=== PATIENT | male | born 1950 | race Hispanic/Latino ===

== ENCOUNTER 2019-08-06 10:05 | Day surgery (SDC) | payer MEDICARE, OTHER ==
--- NOTE | 2019-08-06 10:27 | Anesthesia Consultation ---
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
[2019-08-06] MEDS ORDERED: ONDANSETRON 4 MG/2 ML INJ IV PRN (10:28)
--- NOTE | 2019-08-06 10:28 | Anesthesia Day of Surgery ---
Anesthesia Day of Surgery - Day of Surgery Patient Examined: Yes Patient H&P Reviewed: Yes Patient is NPO: Yes
[2019-08-06] MEDS ORDERED: MIDAZOLAM 2 MG/2 ML INJ IV NR (11:00)
[2019-08-06] MEDS ORDERED: LACTATED RINGERS 1,000 ML IV SCH (11:00)
[2019-08-06 11:45] LABS: Basophils # (Auto) 0.1 K/mm3 (0.0-0.1); Basophils % (Auto) 1.2 % (0.0-1.8); Eosinophils # (Auto) 0.2 K/mm3 (0.0-0.4); Eosinophils % (Auto) 3.3 % (0.0-4.3); Hematocrit 40.6 % (35.5-45.6); Hemoglobin 13.9 gm/dl (11.8-15.2); Lymphocytes # (Auto) 1.2 K/mm3 (1.2-5.4); Lymphocytes % (Auto) 18.1 % (13.4-35.0); Mean Corpuscular HGB Conc 34 % (32-34); Mean Corpuscular Volume 87 fl (84-94); Monocytes # (Auto) 0.7 K/mm3 (0.0-0.8); Monocytes % (Auto) 9.9 % (0.0-7.3); Platelet Count 242 K/mm3 (140-440); Red Blood Count 4.68 M/mm3 (3.65-5.03); Red Cell Distribution Width 13.4 % (13.2-15.2)
[2019-08-06 12:06] LABS: BUN/Creatinine Ratio 15; Blood Urea Nitrogen 15 mg/dL (9-20); Calcium 8.5 mg/dL (8.4-10.2); Hemolysis Index 22
[2019-08-06] MEDS ORDERED: LIDOCAINE MPF (2%) 20 MG/1 ML VIAL 5 ML ONE (14:03)
[2019-08-06] MEDS ORDERED: fentaNYL 100 MCG/2 ML INJ ONE (14:03)
[2019-08-06] MEDS ORDERED: PROPOFOL 200 MG/20 ML VIAL IV ONE (14:03)
[2019-08-06] MEDS ORDERED: MIDAZOLAM 2 MG/2 ML INJ ONE (14:16)
[2019-08-06] MEDS ORDERED: ePHEDrine SULFATE 50 MG/1 ML INJ ONE (14:53)
[2019-08-06] MEDS ORDERED: HYDROmorphone 1 MG/1 ML INJ ONE (15:07)
[2019-08-06] MEDS ORDERED: IOHEXOL 300 MG/ML 50ML IV ONE (15:12)
[2019-08-06] MEDS ORDERED: WATER FOR IRRIG STERILE 1,000 ML BOTTLE IR ONE (15:12)
[2019-08-06] MEDS ORDERED: WATER FOR IRRIG STERILE 2000 ML IR ONE (15:13)
[2019-08-06] MEDS ORDERED: SODIUM CHLORIDE 0.9% 100 ML ONE (15:16)
[2019-08-06] MEDS ORDERED: MITOMYCIN UD NR (15:30)
[2019-08-06] MEDS ORDERED: WATER FOR INJ UD NR (15:30)
[2019-08-06] MEDS ORDERED: MITOMYCIN IV ONE (15:39)
--- NOTE | 2019-08-06 15:51 | Short Stay Summary ---
Short Stay Documentation Date of service: 08/06/19 - History H&P: obtained from office - Allergies and Medications Current Medications: Allergies No Known Allergies Allergy (Verified 07/29/19 17:30) Home Medications Medication Instructions Recorded Confirmed Last Taken Type Aspirin [Adult Aspirin] 81 mg PO DAILY 07/29/19 07/29/19 07/30/19 08:00 History AtorvaSTATin [Lipitor] 20 mg PO QHS 07/29/19 07/29/19 08/05/19 20:00 History Cilostazol [Pletal] 50 mg PO DAILY 07/29/19 07/29/19 07/30/19 08:00 History Clopidogrel [Plavix] 75 mg PO QDAY 07/29/19 07/29/19 07/30/19 08:00 History Ezetimibe [Zetia] 10 mg PO QDAY 07/29/19 07/29/19 08/05/19 20:00 History Lisinopril [Zestril TAB] 10 mg PO QDAY 07/29/19 07/29/19 08/05/19 20:00 History Butner-3/Dha/Epa/Fish Oil [Fish Oil 1 each PO DAILY 07/29/19 07/29/19 08/05/19 20:00 History 1,200 mg Softgel] Pantoprazole [Protonix] 40 mg PO QDAY 07/29/19 07/29/19 08/05/19 20:00 History dilTIAZem HCl [Diltiazem 24Hr ER 240 mg PO DAILY 07/29/19 07/29/19 08/05/19 20 :00 History (Cd)] Active Medications Hydromorphone HCl (Dilaudid) 0.5 mg IV Q10MIN PRN PRN Reason: Pain , Severe (7-10) Stop: 08/06/19 23:59 Lactated Ringer's (Lactated Ringers) 1,000 mls @ 100 mls/hr IV DIRECT KATHY Last Admin: 08/06/19 11:05 Dose: 100 mls/hr Documented by: Midazolam HCl (Versed) 2 mg IV PREOP NR Stop: 08/06/19 23:59 Last Admin: 08/06/19 11:38 Dose: 2 mg Documented by: Ondansetron HCl (Zofran) 4 mg IV ONCE PRN PRN Reason: Nausea And Vomiting - Physical exam General appearance: no acute distress - Brief post op/procedure progress note Date of procedure: 08/06/19 Pre-op diagnosis: hematuria abn cytol Post-op diagnosis: other (bladder tumor) Procedure: cysto turbt, bx, cysto brpg, intravesical mitomycin Findings: right upper lateral wall tumor lg lat lobes prost mod median lobe prostate Surgeon: FRANKIE ROQUE Estimated blood loss: minimal (20) Pathology: list (bladder tumor, bladder base, bladder tumor particles) Specimen disposition: to lab Condition: stable - Hospital course Hospital course: or pacu home after intravesical chemo - Disposition Condition at discharge: Good Disposition: DC-01 TO HOME OR SELFCARE Short Stay Discharge Plan Activity: advance as tolerated Diet: advance as tolerated
--- NOTE | 2019-08-06 16:50 | Fluoroscopy Report ---
10 fluoroscopic images submitted Indication: Intraoperative localization Impression: 10 images of the abdomen were submitted for documentation purposes with radiology she badillo. Cystogram and bilateral retrograde pyelograms were performed for bladder tumor resection. A t otal of 35 mL of Omnipaque 300 was utilized for the exam. Please refer to the operative note for comp lete details. Fluoroscopic time: 45 seconds Signer Name: Misael Tristan MD Signed: 08/06/2019 4:46 PM Workstation Name: [id number]
[2019-08-06] MEDS: HYDROmorphone 1 MG/1 ML INJ IV PRN ×3 (17:10→17:31)
[2019-08-06 17:28] VITALS: BP 164/66
--- NOTE | 2019-08-06 17:46 | Post Anesthesia Evaluation ---
- Post Anesthesia Evaluation Patient Participated: Yes Airway Patent: Yes Stable Respiratory Function: Yes Nausea/Vomiting: No Temp > 96.8F: Yes Pain Manageable: Yes Adequeate Hydration: Yes Anesthesia Complications: No Block Receding Appropriately: Not Applicable Patient on Ventilator: No
--- NOTE | 2019-08-30 14:51 | Operative Report ---
UROLOGY OPERATIVE NOTE PREOPERATIVE DIAGNOSES: Hematuria, abnormal cytology, normal CT scan. POSTOPERATIVE DIAGNOSIS: Bladder tumor. PROCEDURE: Cystoscopy, TURBT, biopsies, bilateral RPG, intravesical mitomycin. FINDINGS: Right upper lateral wall tumor, large lateral lobes of the prostate, and large median lobe prostate. SURGEON: Aaron Espinal MD ESTIMATED BLOOD LOSS: 20 mL. PATHOLOGY: Base of bladder tumor, possible bladder tumor particles. SPECIMENS: To lab. CONDITION: Stable. COMPLICATIONS: None. IMPLANTS: None. CLINICAL INDICATIONS: The patient was counseled on RCBA, antibiotics, SCDs. This hematuria workup had a normal CT, but abnormal cytology and he had had some bleeding up to a year ago. He was counseled on options and wanted to proceed with cystoscopy and treatment if anything found. DESCRIPTION OF PROCEDURE: Had antibiotics, sequential compression devices. The patient was transferred to OR suite in supine position, anesthesia, dorsal lithotomy, prepped and draped in standard fashion. At this point, a 22-Barbadian scope was assembled and was passed into the bladder. Pancystoscopy was performed with a 30 and 70 degree lens. There was a papillary lesion at the upper posterior towards the dome and right side of the bladder wall. At this point, left UO cannulated with 8-Barbadian cone-tipped catheter, contrast injected. Normal left distal ureter, proximal ureter, renal pelvis calyces, no filling defects or hydronephrosis. Repeated on the right side with similar normal findings. At this point, the resection loop was assembled and 24-Barbadian loop was passed due to the location of the tumor was difficult to deflect the scope including with abdominal manipulation or manual manipulation was difficult to access. We did loop some tissue, but still difficult, but overall once the loop was assembled and passed closed with a fairly small lesion, was obvious papillary, did look like a less than 5-10 mm lesion. At this point, rigid biopsy large forceps were passed. We were able to encompass the majority of the tumor. This was removed. A second pass was placed and then we did the biopsies and deeper tissues. Then, electrocautery was passed. We fulgurated this area. Bladder was irrigated multiple times. Diallo catheter inserted. Then, 40 mg mixed with appropriate fluid was minimized and was instilled within the bladder. Diallo was clamped and exam under anesthesia, no palpable testicle masses and prostate, no nodules on exam. The patient was awakened and transferred to PACU in good and stable condition. JOB# [id number] ATS/NTS
== END 2019-08-06 10:06 | disposition home or self-care (01) ==
LOC: OR 10:05
PROVIDERS: ATTEND Urology
DX: C67.2 Malignant neoplasm of lateral wall of bladder (principal); R31.0 Gross hematuria; I73.9 Peripheral vascular disease, unspecified; E78.00 Pure hypercholesterolemia, unspecified; I10 Essential (primary) hypertension; K21.9 Gastro-esophageal reflux disease without esophagitis; Z85.89 Personal history of malignant neoplasm of other organs and systems; Z87.891 Personal history of nicotine dependence; Z79.82 Long term (current) use of aspirin; Z79.899 Other long term (current) drug therapy; Z98.890 Other specified postprocedural states
CPT/HCPCS: 36415; 52234; 74420; 80048; 85025; 88305; A4217; C1758; C1769; J1170; J2250; J2704; J3010; J7120; J9280; Q9967; 88307